=== PATIENT | male | born 1995 | race Asian ===

== ENCOUNTER 2017-03-04 03:13 | Emergency (ER) | payer OTHER ==
[~2017-03-04] VITALS: Ht 185.4 cm; Wt 90.9 kg
[2017-03-04] MEDS ORDERED: PROPOFOL 10 MG/ML, 20ML ONE (03:41)
[2017-03-04] MEDS ORDERED: SODIUM CHLORIDE 0.9% 1,000ML IVBOLUS ONE (04:00)
[2017-03-04] MEDS ORDERED: PROPOFOL 10 MG/ML, 20ML IVPush ONE (04:00)
[2017-03-04] MEDS ORDERED: SODIUM CHLORIDE FLUSH 10ML SYR IVF ONE (04:00)
[2017-03-04 05:12] VITALS: BP 134/86
== END 2017-03-04 05:32 | disposition home or self-care (01) ==
LOC: ED 05:20
DX: S43.015A Anterior dislocation of left humerus, initial encounter (principal); S06.0X0A Concussion without loss of consciousness, initial encounter; S00.03XA Contusion of scalp, initial encounter; Y04.0XXA Assault by unarmed brawl or fight, initial encounter; Y93.89 Activity, other specified; Y99.8 Other external cause status; Y92.89 Other specified places as the place of occurrence of the external cause
CPT/HCPCS: 23650; 70450; 72125; 99152